=== PATIENT | male | born 1995 | race Caucasian/White ===

== ENCOUNTER 2017-04-15 20:50 | Emergency (ER) | payer OTHER ==
[~2017-04-15] VITALS: Ht 177.8 cm; Wt 88.5 kg
[2017-04-15] MEDS ORDERED: LORazepam Inj 2mg/ml 1ml IV ONE (21:30)
[2017-04-15 22:48] VITALS: BP 145/74
[2017-04-15 23:31] VITALS: BP 145/74
--- NOTE | 2017-04-16 04:02 | Emergency Room Report ---
History of Present Illness General Chief Complaint: General Complaint Source: Patient Present Illness HPI Patient presents with complaints of adverse reaction after taking edible marijuana Patient was he has taken 20 mg earlier today Patient is here with a friend who has also taken the same dosage however this patient has never taken the edible before Patient now feels palpitations feels nauseous when he stands up Denies any vomiting or diarrhea denies any back or flank pain Patient did also drink beer before taking the double Allergies: Coded Allergies: No Known Allergies (Unverified , 04/15/17) Patient History Pertinent Family History: none Reviewed Nursing Documentation: PMH: Agreed, PSxH: Agreed Nursing Documentation-PMH Hx Cardiac Problems: Yes - SVT Hx Asthma: Yes Review of Systems All Other Systems: negative except mentioned in HPI Physical Exam Vital Signs Date Time Temp Pulse Resp B/P (MAP) Pulse Ox O2 Delivery O2 Flow Rate FiO2 04/15/17 20:55 98.4 144 18 161/84 98 Room Air Sp02 EP Interpretation: reviewed, normal General Appearance: well appearing, no apparent distress Head: normocephalic, atraumatic Eyes: bilateral eye PERRL, bilateral eye EOMI, bilateral eye Scleral Injection - bilaterally ENT: hearing grossly normal, normal pharynx, TMs + canals normal, uvula midline Neck: full range of motion, supple, no meningismus, no bony tend Respiratory: lungs clear, normal breath sounds, no rhonchi, no respiratory distress, no retraction, no accessory muscle use Cardiovascular #1: normal peripheral pulses, no edema, no gallop, no JVD, no murmur, tachycardia Gastrointestinal: normal bowel sounds, non tender, soft, no mass, no organomegaly, non-distended, no guarding, no hernia, no pulsatile mass, no rebound Genitourinary: no CVA tenderness Musculoskeletal: normal inspection Neurologic: oriented x3, responsive, 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, motor strength/ tone normal, sensory intact Psychiatric: mood/affect normal Skin: normal color, no rash, warm/dry, palpation normal Lymphatic: normal inspection, no adenopathy Medical Decision Making Diagnostic Impression: Primary Impression: drug abuse ER Course Patient had acute intervention with IV fluids and Ativan provided He is observed further in the emergency room continues to do well and on reevaluation feels improved to go home patient appears to have had a secondary reaction to the medication had taken And he will have close followup Last Vital Signs Date Time Temp Pulse Resp B/P (MAP) Pulse Ox O2 Delivery O2 Flow Rate FiO2 04/15/17 23:31 99.2 106 14 145/74 98 Room Air Status: improved Disposition: HOME, SELF-CARE Condition: Improved Referrals: NOT CHOSEN [facility]/MD,REFERRING (PCP) Patient Instructions: Cannabis Use Disorder Additional Instructions: Patient is provided with the discharge instructions notified to follow up with primary doctor in the next 2-3 days otherwise return to the er with any worsening symptoms. Please note that this report is being documented using [employer] technology. This can lead to erroneous entry secondary to incorrect interpretation by the dictating instrument. TAMMIE KEMP D.O. Apr 16, 2017 04:02
== END 2017-04-15 23:35 | disposition home or self-care (01) ==
LOC: EDBD 20:50 → EMR 21:08
DX: F12.10 Cannabis abuse, uncomplicated (principal); R00.2 Palpitations; J45.909 Unspecified asthma, uncomplicated
CPT/HCPCS: 96374; 96375; 99284